=== PATIENT | female | born 1990 | race Caucasian/White ===

== ENCOUNTER 2017-02-26 12:52 | Emergency (ER) | payer OTHER, BC ==
[~2017-02-26] VITALS: Ht 154.9 cm; Wt 84.5 kg
[~2017-02-26 12:52] MED LIST: MOTRIN 600600 MG/TAB PO; PERCOCET 325 MG1 TA2 PO; PRENATAL1 TA1 PO
[2017-02-26 12:55] VITALS: BP 132/91; PULSE 85; TEMP 99.3
== END 2017-02-26 13:51 | disposition home or self-care (01) ==
LOC: COL.ER 12:52
DX: S50.02XA Contusion of left elbow, initial encounter (principal); S16.1XXA Strain of muscle, fascia and tendon at neck level, initial encounter; V43.62XA Car passenger injured in collision with other type car in traffic accident, initial encounter; Y92.410 Unspecified street and highway as the place of occurrence of the external cause

== ENCOUNTER 2018-04-01 18:36 | Emergency (ER) | payer BC ==
[~2018-04-01] VITALS: Ht 154.9 cm; Wt 83.2 kg
[2018-04-01 18:38] VITALS: BP 149/89
[2018-04-01] MEDS ORDERED: PRENATAL PO (18:40)
[2018-04-01 19:22] LABS: COLLECTION METHOD CLEAN CATCH
[2018-04-01 19:25] LABS: BASO % 0.3 % (0.0-2.0); EOS # 0.1 (0.0-0.7); EOS % 1.2 % (0-4.0); GRAN # 7.8 (1.4-6.5); GRAN % 74.3 % (42.2-75.2); HEMATOCRIT 36.8 % (37.0-47.0); HEMOGLOBIN 12.7 g/dl (12.5-16.0); LYMPH % 18.7 % (20.0-51.0); MEAN CELL VOLUME 86 fl (80.0-100.0); MEAN CORPUSCULAR HEMOGLOBIN 30 pg (27.0-31.0); MEAN CORPUSCULAR HGB CONC 35 g/dl (33.0-37.0); MEAN PLATELET VOLUME 10.1 fl (7.4-10.4); MONO # 0.5 (0.1-0.6); MONO % 4.9 % (1.7-9.3); PLATELET COUNT 219 K/mm3 (130-400); RED BLOOD COUNT 4.28 M/mm3 (4.10-5.30); REDCELL DISTRIBUTION WIDTH-CV 12.8 % (11.5-14.5)
[2018-04-01 19:29] LABS: PH 7 (5-8); SQUAMOUS EPITHELIAL 0-2 /hpf; URINE APPEARANCE Clear; URINE BACTERIA None Seen /hpf; URINE BILIRUBIN Negative (NEGATIVE); URINE BLOOD 3+ (NEGATIVE); URINE COLOR Straw; URINE GLUCOSE Negative (NEGATIVE); URINE KETONE Negative (NEGATIVE); URINE LEUKOCYTE ESTERASE Trace (NEGATIVE); URINE NITRATE Negative (NEGATIVE); URINE PROTEIN(semi-quant) Negative (NEGATIVE); URINE UROBILINOGEN Negative (NEGATIVE)
[2018-04-01] MEDS ORDERED: MONUROL 3 GM3 G/PKT PO (20:21)
[2018-04-01 20:43] VITALS: PULSE 93; TEMP 99.1
== END 2018-04-01 20:38 | disposition home or self-care (01) ==
LOC: COL.ER 18:36
PROVIDERS: Physician Assistant
DX: O46.91 Antepartum hemorrhage, unspecified, first trimester (principal); Z3A.12 12 weeks gestation of pregnancy; Z67.40 Type O blood, Rh positive

== ENCOUNTER → 2018-05-07 | Outpatient (CLI) | payer BC ==
[~2018-05-07] MED LIST changes: +MONUROL 3 GM3 G/PKT PO; +PRENATAL PO
== END ==
LOC: SUN.DIA 11:17
DX: O24.419 Gestational diabetes mellitus in pregnancy, unspecified control (principal); Z3A.18 18 weeks gestation of pregnancy; Z71.3 Dietary counseling and surveillance
CPT/HCPCS: G0108

== ENCOUNTER → 2018-05-29 | Outpatient (CLI) | payer BC | LOC: SUN.DIA 10:25 | DX: O24.414 Gestational diabetes mellitus in pregnancy, insulin controlled (principal); Z3A.18 18 weeks gestation of pregnancy | CPT/HCPCS: G0108 ==

== ENCOUNTER → 2018-06-06 | Outpatient (CLI) | payer BC | LOC: SUN.DIA 11:35 | DX: O24.419 Gestational diabetes mellitus in pregnancy, unspecified control (principal); Z3A.19 19 weeks gestation of pregnancy | CPT/HCPCS: G0108 ==

== ENCOUNTER → 2018-06-12 | Outpatient (CLI) | payer BC | LOC: SUN.DIA 10:11 | DX: O24.414 Gestational diabetes mellitus in pregnancy, insulin controlled (principal); Z3A.20 20 weeks gestation of pregnancy | CPT/HCPCS: G0108 ==

== ENCOUNTER → 2018-07-01 | Outpatient (CLI) | payer BC | LOC: SUN.DIA 13:20 | DX: O24.414 Gestational diabetes mellitus in pregnancy, insulin controlled (principal); Z3A.20 20 weeks gestation of pregnancy | CPT/HCPCS: G0108 ==

== ENCOUNTER 2018-10-06 07:30 | Inpatient (IN) | payer BC ==
[~2018-10-06] VITALS: Ht 155 cm; Wt 98.6 kg
[2018-10-06] VITALS (17 sets, daily range): BP systolic 105–133; BP diastolic 55–90; PULSE 82–106; TEMP 97.4–98.2
[2018-10-06] MEDS ORDERED: GLUCOPHAGE500 MG/TAB PO (09:18)
[2018-10-06] MEDS ORDERED: GLUCOPHAGE1000 MG PO (09:18)
[2018-10-06] MEDS ORDERED: BASAGLAR K100 UNIT/1 SQ (09:19)
[2018-10-06 10:01] LABS: BASO % 0.2 % (0.0-2.0); EOS # 0.1 (0.0-0.7); GRAN % 78.3 % (42.2-75.2); HEMATOCRIT 37.2 % (37.0-47.0); HEMOGLOBIN 12.2 g/dl (12.5-16.0); LYMPH # 1.3 (1.2-3.4); LYMPH % 14.3 % (20.0-51.0); MEAN CELL VOLUME 86 fl (80.0-100.0); MEAN CORPUSCULAR HEMOGLOBIN 28 pg (27.0-31.0); MEAN CORPUSCULAR HGB CONC 33 g/dl (33.0-37.0); MEAN PLATELET VOLUME 11.6 fl (7.4-10.4); MONO # 0.5 (0.1-0.6); MONO % 5.6 % (1.7-9.3); PLATELET COUNT 135 K/mm3 (130-400); RED BLOOD COUNT 4.32 M/mm3 (4.10-5.30); REDCELL DISTRIBUTION WIDTH-CV 14.1 % (11.5-14.5)
[2018-10-07 01:50] VITALS: BP 115/59; PULSE 96; TEMP 97.8
[2018-10-07 08:00] VITALS: BP 120/70; PULSE 88; TEMP 98.4
[2018-10-07] MEDS ORDERED: PERCOCET 325 MG1 TA2 PO (08:36)
[2018-10-07] MEDS ORDERED: IBU600 MG PO (08:36)
[2018-10-07 21:00] VITALS: BP 116/64; PULSE 98; TEMP 98.6
[2018-10-08 08:05] VITALS: BP 102/70; PULSE 82; TEMP 99.1
== END 2018-10-08 12:40 | disposition home or self-care (01) | DRG 785 ==
LOC: LDR 07:30 → OB 08:55
PROVIDERS: Obstetrics & Gynecology
PROC: 10D00Z1 Extraction of Products of Conception, Low, Open Approach (ICD-10-PCS; principal; 2018-10-06)
PROC: 0UT70ZZ Resection of Bilateral Fallopian Tubes, Open Approach (ICD-10-PCS; 2018-10-06)
DX: O34.211 Maternal care for low transverse scar from previous cesarean delivery (principal); Z3A.39 39 weeks gestation of pregnancy; Z37.0 Single live birth; Z40.03 Encounter for prophylactic removal of fallopian tube(s); O24.424 Gestational diabetes mellitus in childbirth, insulin controlled; O99.214 Obesity complicating childbirth
CPT/HCPCS: J0690; J1885; J2210; J2370; J2590; J3010; J7120

== ENCOUNTER → 2020-04-27 | Outpatient (CLI) | payer BC ==
[~2020-04-27] MED LIST changes: +BASAGLAR K100 UNIT/1 SQ; +GLUCOPHAGE1000 MG PO; +GLUCOPHAGE500 MG/TAB PO; +IBU600 MG PO
== END ==
LOC: ZCOL.LAB 12:06
DX: R05 Cough (principal); Z20.828 Contact with and (suspected) exposure to other viral communicable diseases

== ENCOUNTER → 2022-12-19 | Outpatient (REF) | LOC: COL.CARD 09:39 | DX: R00.2 Palpitations (principal) ==